=== PATIENT | female | born 1985 | race African-American/Black ===

== ENCOUNTER 2021-01-10 07:08 | Inpatient (IN) | payer BC ==
[2021-01-10 08:16] LABS: EOS % 0.5 % (0-4.5); HEMATOCRIT 36.9 % (32.4-45.2); HEMOGLOBIN 12.7 GM/dL (10.7-15.3); LYMPH % 14.7 % (8-40); MCH 30.9 pg (25.7-33.7); MCHC 34.3 g/dl (32.0-36.0); MEAN CELL VOLUME 90.1 fl (80-96); MEAN PLT VOLUME 8.5 fl (7.5-11.1); NEUT % 78.8 % (42.8-82.8); PLATELET COUNT 260 K/MM3 (134-434); RBC 4.09 M/mm3 (3.60-5.2)
[2021-01-10 08:19] LABS: INR 0.87 (0.83-1.09); PROTHROMBIN TIME (PATIENT) 10.7 SEC (9.7-13.0)
[2021-01-10 08:21] LABS: ACTIVATED PTT 25.6 SECONDS (25.2-36.5)
[2021-01-10] MEDS ORDERED: BUPIVACAINE HCL/PF 0.25% (2.5MG/ML) 10 ML VIAL ONE (08:26)
[2021-01-10 08:30] LABS: CALCIUM 8.5 mg/dL (8.5-10.1)
[2021-01-10 08:31] LABS: BLOOD UREA NITROGEN 11.5 mg/dL (7-18)
[2021-01-10 08:34] LABS: CREATININE 0.7 mg/dL (0.55-1.3)
[2021-01-10 08:36] VITALS: BMI 34.5
[2021-01-10] MEDS ORDERED: FENTANYL/BUPIVACAINE/NS/PF - PCEA - 50 ML DISP.SYRIN EP ONE ×2 (08:54→13:31)
[2021-01-10] MEDS ORDERED: PCA PUMP NR ONE (08:58)
[2021-01-10] MEDS ORDERED: NALOXONE HCL 0.4 MG/ML VIAL IVPUSH PRN (09:08)
[2021-01-10] MEDS ORDERED: FENTANYL/BUPIVACAINE/NS/PF - PCEA - 50 ML DISP.SYRIN EP SCH (09:30)
[2021-01-10] MEDS ORDERED: OXYTOCIN 30 UNITS in 0.9% NS 30 UNIT/500 ML INFUS.BAG IVPB ONE (13:25)
[2021-01-10] MEDS ORDERED: ELECTROLYTE-148 SOLN 1,000 ML IV SCH (13:30)
[2021-01-10] MEDS ORDERED: OXYTOCIN 20 UNITS in 0.9% NS 20 UNIT/1,000 ML INFUS.BAG IV ONE (17:07)
[2021-01-10] MEDS ORDERED: BISACODYL 10 MG SUPP.RECT RC PRN (17:37)
[2021-01-10] MEDS ORDERED: BENZOCAINE 20% 57 GM BOTTLE TP PRN (17:37)
[2021-01-10] MEDS ORDERED: METHYLERGONOVINE MALEATE 0.2 MG/1 ML AMP IM PRN (17:37)
[2021-01-10] MEDS ORDERED: BENZOCAINE 28 GM HEMORRHOIDAL OINTMENT TP PRN (17:37)
[2021-01-10] MEDS ORDERED: IBUPROFEN 600 MG TABLET (FP) PO PRN (17:37)
[2021-01-10] MEDS ORDERED: WITCH HAZEL 50% (TUCKS) 40 PAD/JAR PAD TP PRN (17:37)
[2021-01-10] MEDS ORDERED: ACETAMINOPHEN 325 MG TABLET (FP) PO PRN (17:37)
[2021-01-10 17:41] LABS: CORD pH 7.127 (7.14-7.44)
[2021-01-10 17:42] LABS: CORD BASE EXCESS -10.9 mmol/L (0-2); CORD PCO2 57.4 mmHg (30-78); CORD pH 7.138 (7.14-7.44)
[2021-01-10] MEDS ORDERED: OXYTOCIN 20 UNITS in 0.9% NS 20 UNIT/1,000 ML INFUS.BAG IV SCH (17:45)
[2021-01-10] MEDS: FERROUS SO4 325 MG TABLET (FP) PO SCH (21:40)
[2021-01-11 07:40] LABS: BASO % 0.3 % (0-2.0); EOS % 0.5 % (0-4.5); HEMATOCRIT 31.6 % (32.4-45.2); HEMOGLOBIN 10.6 GM/dL (10.7-15.3); LYMPH % 10.1 % (8-40); MCH 30.3 pg (25.7-33.7); MCHC 33.5 g/dl (32.0-36.0); MEAN CELL VOLUME 90.4 fl (80-96); MONO % 6.8 % (3.8-10.2); NEUT % 82.3 % (42.8-82.8); PLATELET COUNT 211 K/MM3 (134-434); RBC 3.49 M/mm3 (3.60-5.2); RDW 14.6 % (11.6-15.6); WHITE BLOOD COUNT 12.5 K/mm3 (4.0-10.0)
[2021-01-11] MEDS: FERROUS SO4 325 MG TABLET (FP) PO SCH ×2 (11:02→22:29)
[2021-01-11] MEDS: PRENATAL VITAMINS W/ FOLIC ACID TABLET (FP) PO SCH (11:02)
[2021-01-11] MEDS ORDERED: SENNOSIDES/DOCUSATE COMBO (SENNA PLUS) TABLET (UD) PO PRN (22:00)
[2021-01-12] MEDS: FERROUS SO4 325 MG TABLET (FP) PO SCH (10:40)
[2021-01-12] MEDS: PRENATAL VITAMINS W/ FOLIC ACID TABLET (FP) PO SCH (10:40)
[2021-01-12 11:23] VITALS: BP 130/80; PULSE 100; TEMP 98
== END 2021-01-12 19:00 | disposition home or self-care (01) | DRG 807 ==
LOC: JLDR 07:08 → J3W 20:25
PROVIDERS: ADMIT Obstetrics & Gynecology; ATTEND Obstetrics & Gynecology
PROC: 10D07Z6 Extraction of Products of Conception, Vacuum, Via Natural or Artificial Opening (ICD-10-PCS; principal; 2021-01-10)
DX: O77.0 Labor and delivery complicated by meconium in amniotic fluid (principal); Z37.0 Single live birth; Z3A.39 39 weeks gestation of pregnancy
CPT/HCPCS: 36415; 36600; 59409; 80048; 82803; 85025; 85461; 85610; 85730; 86780; 86850; 86900; 86901; 86999; 88307-TC; C9803; U0003; U0005

== ENCOUNTER 2021-10-21 00:34 | Emergency (ER) | payer BC ==
[2021-10-21 00:55] VITALS: BP 142/92; PULSE 89; TEMP 97.7; BMI 29.2
[2021-10-21 01:54] LABS: BASO % 1.1 % (0-2.0); HEMATOCRIT 38.9 % (32.4-45.2); HEMOGLOBIN 12.8 GM/dL (10.7-15.3); LYMPH % 27.6 % (8-40); MCH 28.8 pg (25.7-33.7); MCHC 32.9 g/dl (32.0-36.0); MEAN CELL VOLUME 87.5 fl (80-96); MEAN PLT VOLUME 8.5 fl (7.5-11.1); MONO % 6.2 % (3.8-10.2); NEUT % 60.1 % (42.8-82.8); PLATELET COUNT 321 10^3/uL (134-434); RBC 4.45 M/mm3 (3.60-5.2); WHITE BLOOD COUNT 4.4 K/mm3 (4.0-10.0)
[2021-10-21 02:06] LABS: CALCIUM 8.9 mg/dL (8.5-10.1)
[2021-10-21 02:07] LABS: ALBUMIN 3.8 g/dl (3.4-5.0); BLOOD UREA NITROGEN 15.3 mg/dL (7-18)
[2021-10-21 02:10] LABS: CREATININE 0.8 mg/dL (0.55-1.3)
[2021-10-21 02:12] LABS: BILIRUBIN,TOTAL 0.5 mg/dL (0.2-1); TOT PROT 7.7 g/dl (6.4-8.2)
== END 2021-10-21 05:12 | disposition home or self-care (01) ==
LOC: JER 00:34
DX: R06.02 Shortness of breath (principal)
CPT/HCPCS: 36415; 71275-TC; 80053; 84484; 84703; 85025; 85379; 93005; 93010; 99285-25